=== PATIENT | male | born 2000 | race African-American/Black ===

== ENCOUNTER 2025-04-06 11:32 | Emergency (ER) | payer OTHER, SELFPAY ==
[2025-04-06 11:55] VITALS: BP 136/68; PULSE 64; TEMP 36.8; O2SAT 98; BMI 25.1
--- NOTE | 2025-04-06 12:25 | XR_ITS ---
[facility] [place] [facility] [id number] Patient Name: ORION JOHNSON MRN: [id number] date: 2000 Sex: M Assigned Patient Location: ER Current Patient Location: ER Accession/Order Number: [id number] Exam Date: 04/06/2025 12:47 Report Date: 04/06/2025 12:48 At the request of: MORALES FOSTER MD Procedure: XR chest 2V PA AND LATERAL CHEST: CLINICAL HISTORY: cough and hemoptysis today COMPARISON: None There is no focal parenchymal consolidation, effusion or pneumothorax. The cardiac, hilar and mediastinal silhouettes are within normal limits. There is no vascular congestion. The visualized bony thorax is intact. XR/XR chest 2V IMPRESSION: NO ACUTE CARDIOPULMONARY ABNORMALITY. Impression dictated by: Thais Reddy M.D. 04/06/2025 12:48 PM Dictation Location: [place] [id number] Electronically authenticated by: [id number] Date: 04/06/2025 12:48
== END 2025-04-06 13:27 | disposition left against medical advice (07) ==
PROVIDERS: Emergency Provider Emergency Medicine
DX: Z53.21 Procedure and treatment not carried out due to patient leaving prior to being seen by health care provider (principal); R10.84 Generalized abdominal pain; R04.2 Hemoptysis
CPT/HCPCS: 71046; 99283